=== PATIENT | female | born 1975 | race Caucasian/White ===

== ENCOUNTER 2022-11-17 12:22 | Emergency (ER) | payer SELFPAY | END 2022-11-17 14:47 | disposition left against medical advice (07) | LOC: ER 12:23 | DX: R10.9 Unspecified abdominal pain (principal); Z53.21 Procedure and treatment not carried out due to patient leaving prior to being seen by health care provider ==

== ENCOUNTER 2023-05-14 08:24 | Emergency (ER) | payer BC ==
[~2023-05-14] VITALS: Ht 157.5 cm; Wt 71.8 kg
[~2023-05-14 08:24] MED LIST: DICY-19 PO
[2023-05-14 08:28] VITALS: BP 158/99; PULSE 109; RESP 18; TEMP 97.9; O2SAT 96
== END 2023-05-14 11:59 | disposition home or self-care (01) ==
LOC: ER 08:26
DX: S80.12XA Contusion of left lower leg, initial encounter (principal); Z88.5 Allergy status to narcotic agent; X58.XXXA Exposure to other specified factors, initial encounter; Y93.89 Activity, other specified; Y92.89 Other specified places as the place of occurrence of the external cause; Y99.8 Other external cause status
CPT/HCPCS: 73590; 99283; L4360

== ENCOUNTER 2024-11-10 05:46 | Outpatient (CLI) | payer MEDICAID ==
[2024-11-10] MEDS ORDERED: LIDOcaine 1%/PF 5ML 10 MG/ML VIAL ONE (06:44)
[2024-11-10] MEDS ORDERED: GADOTERATE MEGLUMINE 7.5 MMOL/15 ML VIAL IV ONE (06:44)
[2024-11-10] MEDS ORDERED: iohexol 300 MG/1 ML 50ml polymer ONE (06:44)
[2024-11-10] MEDS ORDERED: LIDOcaine 1% 30ml preserv. free vial ONE (06:44)
== END 2024-11-10 23:59 | disposition home or self-care (01) ==
LOC: RAD 05:46
PROVIDERS: ATTEND Pediatrics Sports Medicine
DX: M25.511 Pain in right shoulder (principal); M19.011 Primary osteoarthritis, right shoulder; S46.011A Strain of muscle(s) and tendon(s) of the rotator cuff of right shoulder, initial encounter; M16.11 Unilateral primary osteoarthritis, right hip; S43.431A Superior glenoid labrum lesion of right shoulder, initial encounter; X58.XXXA Exposure to other specified factors, initial encounter; Y93.89 Activity, other specified; Y92.89 Other specified places as the place of occurrence of the external cause; Y99.8 Other external cause status; Z98.890 Other specified postprocedural states; Z79.899 Other long term (current) drug therapy
CPT/HCPCS: 23350; 73222; 77002; A9575; J2003; J3490; Q9967; 85007